=== PATIENT | male | born 1950 | race Caucasian/White ===

== ENCOUNTER 2016-10-19 17:21 | Inpatient (IN) | payer MEDICARE, OTHER ==
[~2016-10-19] VITALS: Ht 175.3 cm; Wt 96.2 kg
[~2016-10-19 17:21] MED LIST changes: -MAGN400T6 PO
--- OUTSIDE RECORDS SUMMARY | 2016-10-19 17:25 | XMS REPORT | Continuity of Care Document ---
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 Name Role Phone PINEDA WILLARD DO Primary Care Physician [phone] Insurance Providers Guarantor Pineda Huber Address [address] [place] [address] Email DENIED/NO TO PT RUST Payer Medicare Policy Number [id number] Subscriber's Name Pineda Huber Relationship 18 Self Effective Date 13 Payer [employer] Policy Number [id number] Subscriber's Name Pineda Huber Relationship 18 Self Group Number [id number] Chief Complaint and Reason for Visit Chief Complaint Cough,Fever,Flu,URI Reason for Visit Bronchitis Problems Active Problems Medical Problem Onset Date Status Abdominal pain Unknown Acute Back pain Unknown Acute Back pain Unknown Acute Bronchitis Unknown Acute Cholecystostomy tube dysfunction Unknown Acute Past Problems Medical Problem Onset Date Acute bronchitis Unknown Concussion Unknown Head injury Unknown Neck strain Unknown Medications Current Home Medications Medication Dose Units Route Directions Days Qty Instructions Start Date Asa/Acetaminophn/Mag/Alh/Caff (Vanquish Caplet) 1 Each Tablet 1 Tab Oral As Needed for Headache 01/18/16 Aspirin (Aspir 81) 81 Mg Tablet. 81 Mg Oral Daily 08/11/14 Azithromycin 250 Mg Tablet 1 Tab Oral Daily 6 Tablet TAKE TWO TABLETS ON DAY ONE, THEN ONE TABLET DAILY UNTIL ALL TAKEN. Supervising physician Dr. Neal Vences [facility] [address] [phone] 07/03/16 Benzonatate (Tessalon Perle) 100 Mg Capsule 100 Mg Oral Every 8 Hours for Cough 10 Days [address] Neal Vences [facility] [address] [place] [address] 07/03/16 Cyclobenzaprine Hcl 10 Mg Tablet 10 Mg Oral Three Times A Day as needed for Muscle Spasm 40 Tablet 01/18/16 Dextromethorphan Polistirex (Delsym) 30 Mg/5 Ml Carmen.er.12h 5 Ml Oral Every 12 Hrs Prn for Cough/Congestion 10 Days [address] Neal Vences [facility] [address] [place] [address] 08/24/16 Meloxicam 15 Mg Tablet 15 Mg Oral Daily 04/19/15 Metformin Hcl 500 Mg Tablet 500 Mg Oral Twice A Day 08/11/14 Minocycline Hcl 100 Mg Capsule 100 Mg Oral Twice A Day 10 Days [address] Neal Vences [facility] [address] [place] [address] 08/24/16 Multivits-Min/Fa/Lycopene/Lut (Centrum Silver Tablet) 1 Each Tablet 1 Tab Oral Daily 09/09/14 Oxymetazoline Hcl (Afrin) 30 Ml Eastover 2 Eastover Nasal As Needed as needed for Nasal Congestion 09/10/14 Promethazine Hcl/Codeine (Prometh-Codein 6.25-10 Mg/5 Ml) 5 Ml Syrup 5 Ml Oral Every Night Prn for Cough/Congestion 10 Days [address] Neal Vences [facility] [address] [place] [address] 07/03/16 Social History Social History Problem Response Recorded Date/Time Onset Date Status Hx Substance Use No 01/18/2016 3:31pm Not Applicable Not Applicable Hx Alcohol Use Y OCCASIONALLY 01/18/2016 3:31pm Not Applicable Not Applicable Has the pt used tobacco in the last 12 months No 07/06/2015 6:48am Not Applicable Not Applicable Tobacco Usage none 01/18/2016 3:08pm Not Applicable Not Applicable Hospital Discharge Instructions No hospital discharge instructions. Plan of Care Discharge Date 08/24/16 11:20am Disposition 01 DISCHARGED HOME, SELF-CARE Condition at Discharge Stable Instructions/Education Provided Upper Respiratory Infection (ED) Acute Cough (ED) Prescriptions See Medication Section Referrals PINEDA WILLARD DO Address: [address] [place] [phone] Additional Instructions/Education Take minocycline as directed. Use Delsym cough syrup as directed. Follow with primary care provider if symptoms are not improving. Functional Status No functional status results. Allergies, Adverse Reactions, Alerts Allergen Type Severity Reaction Status Last Updated Penicillin Allergy Unknown Active 08/24/16 Immunizations Query Response on File Recorded Date/Time Hx Influenza Vaccination No 07/06/15 6:48am Hx Pneumococcal Vaccination No 07/06/15 6:48am Hx Influenza Vaccination No 07/06/15 6:48am DTaP Vaccine History NO 08/24/16 10:36am Influenza Vaccine Hx NO 08/24/16 10:36am Tetanus Diptheria Vaccine History NO 08/24/16 10:36am Vital Signs Acute Vital Signs Vital Response Date/Time Temperature (Fahrenheit) 98.3 deg F (96.8 - 99.1) 08/24/2016 10:33am Temperature (Calculated Celsius) 36.18032 degrees C (36.0 - 37.3) 08/24/2016 10:33am Pulse Rate (adult) 74 bpm (60 - 100) 08/24/2016 10:33am Respiratory Rate 18 breaths/min (10 - 20) 08/24/2016 10:33am O2 Sat by Pulse Oximetry 97 % (90 - 100) 08/24/2016 10:33am Blood Pressure 114/76 mm Hg 08/24/2016 10:33am Height (Inches) 67.12 inches 08/24/2016 10:33am Weight (Kilograms) 91.400 kg 08/24/2016 10:33am Body Mass Index (BMI) 31.0 08/24/2016 10:33am Results No known relevant diagnostic tests, laboratory data and/or discharge summary. Procedures No known history of procedures. Encounters Encounter Location Arrival/Admit Date Discharge/Depart Date Attending Provider Departed Emergency Room [facility] 08/24/16 10:16am 08/24/16 11: 20am MARISEL GALVIN APRN Departed Emergency Room [facility] 07/03/16 11:21am 07/03/16 12: 12pm MARISEL GALVIN FLOOR INSTALLER Recent Diagnosis
--- OUTSIDE RECORDS SUMMARY | 2016-10-19 17:25 | XMS REPORT | Continuity of Care Document ---
Author Author [facility] Organization [facility] Address Unknown Phone Unavailable Support Name Relationship Address Phone NAPOLEON SHARMA MD Caregiver [facility] [address] [place] [address] Unavailable NAPOLEON WILLARD DO Caregiver [facility] [address] [place] [phone] RISHI HUBER Next Of Kin [address] [place] [address] Insurance Providers Payer Name Policy Number Subscriber Name Relationship Medicare [id number] Napoleon Huber 18 Self [employer] [id number] Napoleon Huber 18 Self Advance Directives Directive Response Recorded Date/Time Advanced Directives Type None 08/11/14 6:35pm Problems Medical Problems Problem Onset Date Status Abdominal pain Unknown Active Cholecystostomy tube dysfunction Unknown Active Back pain Unknown Active Medications Medication Dose Route Sig Days/Qty Instructions Order Date Discontinued Date Status Amlodipine Besylate/Benazepril 1 Cap PO DAILY 07/09/08 Active Ascorbic Acid 500 Mg PO DAILY 07/09/08 Active Aspirin 1 Tab PO DAILY 08/11/14 Active Meloxicam 15 Mg PO DAILY 08/11/14 Active Metformin HCl 500 Mg PO TWICE A DAY Take one tablet, by mouth, one time a day with breakfast. 08/11/14 Active Prochlorperazine Maleate 10 Mg PO FOUR TIMES DAILY 30 Qty 08/11/14 Active Social History Social History Problem Response Recorded Date/Time Chewing Tobacco Status N former 08/11/2014 6:59pm Hx Substance Use No 08/11/2014 6:59pm Hx Alcohol Use Y 1 beer a month 08/11/2014 6:59pm Query Response Start Date Stop Date Smoking Status Former smoker Hospital Discharge Instructions No hospital discharge instructions. Plan of Care No plan of care. Functional Status Query Response Date Recorded Physical Hygiene Self August 11, 2014 6:59pm Disabilities Visual August 11, 2014 6:59pm Devices Used Glasses August 11, 2014 6:59pm Dressing Self August 11, 2014 6:59pm Ambulation Self August 11, 2014 6:59pm Diet Self August 11, 2014 6:59pm Mental Status Alert Oriented August 11, 2014 6:59pm Disabilities Visual August 11, 2014 6:59pm Devices Used Glasses August 11, 2014 6:59pm Physical Hygiene Self August 11, 2014 6:59pm Dressing Self August 11, 2014 6:59pm Ambulation Self August 11, 2014 6:59pm Diet Self August 11, 2014 6:59pm Allergies, Adverse Reactions, Alerts Allergen Type Severity Reaction Status Last Updated Penicillin Allergy Unknown Active 08/11/14 Immunizations Name Given Type Hx Influenza Vaccination No Historical Hx Pneumococcal Vaccination No Historical Hx Influenza Vaccination No Historical Vital Signs Acute Vital Signs Vital Response Date/Time Temperature (Fahrenheit) 97.0 deg F (96.8 - 99.1) Temperature (Calculated Celsius) 36.71098 degrees C (36.0 - 37.3) Pulse Rate (adult) 66 bpm (60 - 100) Respiratory Rate 16 breaths/min (10 - 20) O2 Sat by Pulse Oximetry 96 % (90 - 100) Blood Pressure 110/70 mm Hg Height 5 ft 9 in Weight 203 lb Body Mass Index 29.0 kg/m^2 Results Test Source Date Result Interp. Ref. Range Comments Alanine Aminotransferase (ALT/SGPT) August 11, 2014 8:10pm 64 U/L N 21- 72 Albumin August 11, 2014 8:10pm 4.3 G/DL N 3.5-5.0 Albumin/Globulin Ratio August 11, 2014 8:10pm 1.4 RATIO N 1.1-2.2 Alkaline Phosphatase August 11, 2014 8:10pm 66 U/L N 38-126 Anion Gap August 11, 2014 8:10pm 8 MEQ/L N 5-15 Aspartate Amino Transf (AST/SGOT) August 11, 2014 8:10pm 113 U/L H 17- 59 BUN/Creatinine Ratio August 11, 2014 8:10pm 27 RATIO H 6-26 Basophils # (Auto) August 11, 2014 8:10pm 0.1 T/MM3 N 0-0.2 Basophils (%) (Auto) August 11, 2014 8:10pm 0.5 % N 0-2 Blood Urea Nitrogen August 11, 2014 8:10pm 19.0 MG/DL N 9-20 Calcium Level August 11, 2014 8:10pm 9.1 MG/DL N 8.4-10.2 Calculated Osmolality August 11, 2014 8:10pm 261 MOSM/KG N 261-280 Carbon Dioxide Level August 11, 2014 8:10pm 25 MEQ/L N 22-30 Chloride Level August 11, 2014 8:10pm 101 MEQ/L N 98-107 Creatinine August 11, 2014 8:10pm 0.7 MG/DL L 0.8-1.5 Eosinophils # (Auto) August 11, 2014 8:10pm 0.1 T/MM3 N 0-0.5 Eosinophils (%) (Auto) August 11, 2014 8:10pm 1.5 % N 0-4 Globulin August 11, 2014 8:10pm 3.1 G/DL N 2.4-3.6 Glucose Level August 11, 2014 8:10pm 110 MG/DL N 75-110 Hematocrit August 11, 2014 8:10pm 40.9 % L 41-53 Hemoglobin August 11, 2014 8:10pm 14.1 GM/DL N 13.5-17.5 Lipase August 11, 2014 8:10pm 196 U/L N 23-300 Lymphocytes # (Auto) August 11, 2014 8:10pm 3.3 T/MM3 N 1-4.8 Lymphocytes (%) (Auto) August 11, 2014 8:10pm 34.4 % N 23-45 Mean Corpuscular Hemoglobin August 11, 2014 8:10pm 31.9 UUG N 26-34 Mean Corpuscular Hemoglobin Concent August 11, 2014 8:10pm 34.5 GM/DL N 31-37 Mean Corpuscular Volume August 11, 2014 8:10pm 92.5 UM3 N 80-100 Mean Platelet Volume August 11, 2014 8:10pm 9.4 UM3 N 9.4-12.4 Monocytes # (Auto) August 11, 2014 8:10pm 0.9 T/MM3 H 0-0.8 Monocytes (%) (Auto) August 11, 2014 8:10pm 9.3 % H 0-9.0 Neutrophils # (Auto) August 11, 2014 8:10pm 5.2 T/MM3 N 1.8-7.7 Neutrophils (%) (Auto) August 11, 2014 8:10pm 54.2 % N 33-66 Platelet Count August 11, 2014 8:10pm 185 T/MM3 N 130-400 Potassium Level August 11, 2014 8:10pm 4.7 MEQ/L N 3.6-5 RDW Standard Deviation August 11, 2014 8:10pm 42.6 FL N 36.9-50.2 Red Blood Count August 11, 2014 8:10pm 4.42 M/MM3 L 4.50-5.90 Sodium Level August 11, 2014 8:10pm 134 MEQ/L N 134-144 Total Bilirubin August 11, 2014 8:10pm 1.40 MG/DL H 0.20-1.30 Total Protein August 11, 2014 8:10pm 7.4 G/DL N 6.3-8.2 Troponin I August 11, 2014 8:10pm 0.013 ng/ml N 0-0.12 White Blood Count August 11, 2014 8:10pm 9.5 T/MM3 N 4.5-11.0 Chemistry Specimen Hemolysis August 11, 2014 8:10pm 116 H 0-25 0-25: No Hemolysis.26-70: Slight Hemolysis - can falsely elevate K and Urine Protein. 71-285: Moderate Hemolysis - can falsely elevate K, Troponin I, CA 19-9, PTH, CSF GLucose, and Urine Protein, and can falsely decrease Phenytoin. 286-999: Gross Hemolysis - can falsely elevate K, Troponin I, CA 19-9, PTH, CSF Glucose, and Urine Protine, and can falsely decrease Phenytoin. Recommend specimen recollection. EKG July 08, 2008 1:33pm Complete - Turbidity August 11, 2014 8:10pm < 20 0-20 Glomerular Filtration Rate Calc August 11, 2014 8:10pm 113 - Immature Granulocyte # (Auto) August 11, 2014 8:10pm 0.01 T/MM3 N 0.00- 0.03 Immature Granulocyte % (Auto) August 11, 2014 8:10pm 0.1 % N 0.0-0.5 Icterus Index August 11, 2014 8:10pm < 2 0-7 Procedures No known history of procedures. Encounters Encounter Location Date/Time Departed Emergency Room [facility] 08/11/14 6:17pm Recent Diagnosis
--- OUTSIDE RECORDS SUMMARY | 2016-10-19 17:25 | XMS REPORT | Continuity of Care Document ---
Author Author [facility] Organization [facility] Address Unknown Phone Unavailable Support Name Relationship Address Phone MILO BINGHAM MD Caregiver [facility] [address] [place] [address] [address] [place] [phone] PINEDA WILLARD DO Caregiver [facility] [address] [place] [phone] RISHI HUBER Next Of Kin [address] [place] [address] Insurance Providers Payer Name Policy Number Subscriber Name Relationship Medicare [id number] Pineda Huber 18 Self [employer] [id number] Pineda Huber 18 Self Advance Directives Directive Response Recorded Date/Time Ordered Resuscitation Status Full Code 09/09/14 5:23pm Resuscitation Documents on File No 09/09/14 2:13pm Problems Medical Problems Problem Onset Date Status Abdominal pain Unknown Active Cholecystostomy tube dysfunction Unknown Active Back pain Unknown Active Back pain Unknown Active Medications Medication Dose Route Sig Days/Qty Instructions Order Date Discontinued Date Status Amlodipine Besylate/Benazepril 1 Cap PO DAILY 07/09/08 Active Aspirin 1 Tab PO DAILY 08/11/14 Active Meloxicam 15 Mg PO DAILY 08/11/14 Active Metformin HCl 500 Mg PO TWICE A DAY Take one tablet, by mouth, one time a day with breakfast. 08/11/14 Active Multivits-Min/FA/Lycopene/Lut 1 Tab PO DAILY 09/09/14 Active Oxymetazoline HCl 2 Hardesty NS DAILY 09/10/14 Active Social History Social History Problem Response Recorded Date/Time Chewing Tobacco Status No 09/09/2014 2:08pm Hx Substance Use No 09/09/2014 2:08pm Hx Alcohol Use Y OCCASIONALLY 09/09/2014 2:08pm Has the pt used tobacco in the last 12 months No 09/09/2014 2:08pm Query Response Start Date Stop Date Smoking Status Former smoker Hospital Discharge Instructions No hospital discharge instructions. Plan of Care No plan of care. Functional Status Query Response Date Recorded Physical Hygiene Self August 11, 2014 6:59pm Physical Hygiene Self August 11, 2014 6:59pm Allergies, Adverse Reactions, Alerts Allergen Type Severity Reaction Status Last Updated Penicillin Allergy Unknown Active 09/09/14 Immunizations Name Given Type Hx Influenza Vaccination No Historical Hx Pneumococcal Vaccination No Historical Hx Influenza Vaccination No Historical Vital Signs Acute Vital Signs Vital Response Date/Time Temperature (Fahrenheit) 98.8 deg F (96.8 - 99.1) Temperature (Calculated Celsius) 37.22808 degrees C (36.0 - 37.3) Pulse Rate (adult) 74 bpm (60 - 100) Respiratory Rate 18 breaths/min (10 - 20) O2 Sat by Pulse Oximetry 94 % (90 - 100) Oxygen Delivery Method Room Air Blood Pressure 95/64 mm Hg Blood Pressure Source Automatic Cuff Height 5 ft 9 in Weight 202 lb Body Mass Index 29.0 kg/m^2 Results Test Source Date Result Interp. Ref. Range Comments Alanine Aminotransferase (ALT/SGPT) August 11, 2014 8:10pm 64 U/L N 21- 72 Albumin August 11, 2014 8:10pm 4.3 G/DL N 3.5-5.0 Albumin/Globulin Ratio August 11, 2014 8:10pm 1.4 RATIO N 1.1-2.2 Alkaline Phosphatase August 11, 2014 8:10pm 66 U/L N 38-126 Anion Gap September 10, 2014 11:00am 11 MEQ/L N 5-15 COMMENT SCU WILL CALL Aspartate Amino Transf (AST/SGOT) August 11, 2014 8:10pm 113 U/L H 17- 59 BUN/Creatinine Ratio September 10, 2014 11:00am 20 RATIO N 6-26 COMMENT SCU WILL CALL Basophils # (Auto) August 11, 2014 8:10pm 0.1 T/MM3 N 0-0.2 Basophils (%) (Auto) August 11, 2014 8:10pm 0.5 % N 0-2 Blood Urea Nitrogen September 10, 2014 11:00am 18.0 MG/DL N 9-20 COMMENT SCU WILL CALL Calcium Level September 10, 2014 11:00am 9.4 MG/DL N 8.4-10.2 COMMENT SCU WILL CALL Calculated Osmolality September 10, 2014 11:00am 275 MOSM/KG N 261-280 COMMENT SCU WILL CALL Carbon Dioxide Level September 10, 2014 11:00am 26 MEQ/L N 22-30 COMMENT SCU WILL CALL Chemistry Specimen Hemolysis September 10, 2014 11:00am < 15 0-25 0-25 : No Hemolysis.26-70: Slight Hemolysis - can falsely elevate K and Urine Protein. 71-285: Moderate Hemolysis - can falsely elevate K, Troponin I, CA 19-9, PTH, CSF GLucose, and Urine Protein, and can falsely decrease Phenytoin. 286-999: Gross Hemolysis - can falsely elevate K, Troponin I, CA 19-9, PTH, CSF Glucose, and Urine Protine, and can falsely decrease Phenytoin. Recommend specimen recollection. Chloride Level September 10, 2014 11:00am 105 MEQ/L N 98-107 COMMENT SCU WILL CALL Creatinine September 10, 2014 11:00am 0.9 MG/DL N 0.8-1.5 COMMENT SCU WILL CALL EKG July 08, 2008 1:33pm Complete - Eosinophils # (Auto) August 11, 2014 8:10pm 0.1 T/MM3 N 0-0.5 Eosinophils (%) (Auto) August 11, 2014 8:10pm 1.5 % N 0-4 Globulin August 11, 2014 8:10pm 3.1 G/DL N 2.4-3.6 Glomerular Filtration Rate Calc September 10, 2014 11:00am 84 - COMMENT SCU WILL CALL Glucometer September 11, 2014 11:32am 122 mg/dL H 75-110 Glucose Level September 10, 2014 11:00am 90 MG/DL N 75-110 COMMENT SCU WILL CALL Hematocrit August 11, 2014 8:10pm 40.9 % L 41-53 Hemoglobin August 11, 2014 8:10pm 14.1 GM/DL N 13.5-17.5 Icterus Index September 10, 2014 11:00am < 2 0-7 COMMENT SCU WILL CALL Immature Granulocyte # (Auto) August 11, 2014 8:10pm 0.01 T/MM3 N 0.00- 0.03 Immature Granulocyte % (Auto) August 11, 2014 8:10pm 0.1 % N 0.0-0.5 Lipase August 11, 2014 8:10pm 196 U/L [...] 8:10pm 185 T/MM3 N 130-400 Potassium Level September 10, 2014 11:00am 4.4 MEQ/L N 3.6-5 COMMENT SCU WILL CALL RDW Standard Deviation August 11, 2014 8:10pm 42.6 FL N 36.9-50.2 Red Blood Count August 11, 2014 8:10pm 4.42 M/MM3 L 4.50-5.90 Sodium Level September 10, 2014 11:00am 142 MEQ/L N 134-144 COMMENT SCU WILL CALL Total Bilirubin August 11, 2014 8:10pm 1.40 MG/DL H 0.20-1.30 Total Protein August 11, 2014 8:10pm 7.4 G/DL N 6.3-8.2 Troponin I August 11, 2014 8:10pm 0.013 ng/ml N 0-0.12 Turbidity September 10, 2014 11:00am < 20 0-20 COMMENT SCU WILL CALL White Blood Count August 11, 2014 8:10pm 9.5 T/MM3 N 4.5-11.0 Name: PINEDA HUBER Unit #: [id number] : [id number] Sex: M Loc / Svc: [facility] DOS: 08/17/14 Signed Report #: [id number] DIAGNOSTIC IMAGING REPORT TYPE OF EXAM: US ABDOMEN COMPLETE Dictated By: MABLE RODGERS MD INDICATION: ITS.REASON: 789.01, V12.72, 401.9 RUQ ABD. PAIN US ABDOMEN COMPLETE: Comparison: None Findings: Hepatic parenchyma is homogeneous without evidence for focal mass. The gallbladder is abnormal with multiple gallstones, wall thickening and numerous areas of comet tail artifact within the gallbladder wall consistent with adenomyomatosis. There is no pericholecystic fluid or sonographic Ugarte's sign. Both the intra and extrahepatic biliary system are of normal caliber with the common duct measuring 4 mm in dimension. Visualized portions of the head and body of the pancreas are unremarkable. Both kidneys are present without collecting system dilatation. The right measures 12.3 cm in length and left measures 12.7 cm. The spleen is unremarkable. The visualized portions of the aorta and IVC are unremarkable. No free fluid. Impression: Cholelithiasis and evidence of adenomyomatosis of the gallbladder. . Procedures Procedure Status Date Provider(s) ROUTINE VENIPUNCTURE completed 08/11/14 COMPREHEN METABOLIC PANEL completed 08/11/14 ASSAY OF LIPASE completed 08/11/14 ASSAY OF TROPONIN QUANT completed 08/11/14 COMPLETE CBC W/AUTO DIFF WBC completed 08/11/14 ELECTROCARDIOGRAM TRACING completed 08/11/14 EMERGENCY DEPT VISIT completed 08/11/14 US EXAM ABDOM COMPLETE completed 08/17/14 Robot-assisted cholecystectomy completed 09/10/14 MILO BINGHAM MD Encounters Encounter Location Date/Time Registered Clinic [facility] 08/17/14 6:54am Departed Emergency Room [facility] 08/11/14 6:17pm
[2016-10-19 17:38] VITALS: Ht 175.3 cm; Wt 96.2 kg
[2016-10-19] MEDS ORDERED: NORMAL SALINE 500 ML IV SCH (17:41)
[2016-10-19 17:46] VITALS: BP 130/65; PULSE 82; RESP 16; TEMP 98.6; O2SAT 97
--- NOTE | 2016-10-19 18:26 | HPPDOC ---
HPI - Adult Date DATE: 10/19/16 TIME: 18:05 General Chief Complaint: hematochezia with blood loss anemia History of Present Illness Raul Huber is a very pleasant 66-year-old white male. He call my office this morning indicating that he had passed bright red blood per rectum and was feeling quite weak. He was then directed to come to [facility] for urgent lab. Results of this lab indicated a hemoglobin of 6.1. His last CBC from 06/04/2016 showed a hemoglobin of 13.9. He indicates that he had 2 episodes in August of bright red blood per rectum on separate days that was as he put it, enough to fill the toilet with blood. Saturday of this week he had another episode of hematochezia and became quite diaphoretic and nauseated. Saturday, he had another episode of bright red rectal bleeding that he describes as a lot. This morning he was still weak and that's what prompted his phone call. He is not taking any supplements [id number] and only takes aspirin 81 mg daily for cardiovascular protection. He has been taking Lopid 15 mg but denies any epigastric pain or melena. He does feel lightheaded with standing. Upon receiving his lab this afternoon, we called him at home and had his bring him to the hospital to be a direct admit and receive transfusion and further testing. Past Medical History Past Medical History Patient's Medical History: (1) Diabetes mellitus type 2 in obese (2) Aortic stenosis, mild (3) Abdominal pain (4) Cholecystostomy tube dysfunction (5) Back pain (6) Joint pain Surgical History Patient's Surgical History: 09/10/2014--cholecystectomy Dr. Reynoso 1984 vasectomy 04/19/2015-heart catheterization Dr. Snider [address] Reynoso 2009 colonoscopy with polypectomy, diverticulosis-- Dr. Willard 07/06/2015 colonoscopy [address] Willard Current Medications Home Meds Active Scripts Dextromethorphan Polistirex (Delsym) 30 Mg/5 Ml Carmen.er.12h, 5 ML PO [id number] for COUGH/CONGESTION for 10 Days, #100 ML [address] Neal Vences [facility] [address] [facility] [phone] Prov:MARISEL GALVIN APRN 08/24/16 Minocycline HCl (Minocycline HCl) 100 Mg Capsule, 100 MG PO BID for 10 Days, # 20 CAP [address] Neal Vences [employer] [address] [phone] Prov:MARISEL GALVIN INVOICE CLASSIFICATION CLERK 08/24/16 Benzonatate (Tessalon Perle) 100 Mg Capsule, 100 MG PO Q8H for COUGH for 10 Days , #30 CAP [address] Neal Vences [employer] [address] [phone] Prov:MARISEL GALVIN INVOICE CLASSIFICATION CLERK 07/03/16 Promethazine HCl/Codeine (Prometh-Codein 6.25-10 mg/5 ml) 5 Ml Syrup, 5 ML PO QHSPRN for COUGH/CONGESTION for 10 Days, #60 ML [address] Neal Vences [employer] [employer] [address] [phone] Prov:MARISEL GALVIN INVOICE CLASSIFICATION CLERK 07/03/16 Azithromycin (Azithromycin) 250 Mg Tablet, 1 TAB PO DAILY, #6 TAB 0 Refills TAKE TWO TABLETS ON DAY ONE, THEN ONE TABLET DAILY UNTIL ALL TAKEN. Supervising physician Dr. Neal Vences [employer] [address] [phone] Prov:MARISEL GALVIN INVOICE CLASSIFICATION CLERK 07/03/16 Cyclobenzaprine HCl (Cyclobenzaprine HCl) 10 Mg Tablet, 10 MG PO TID Y for MUSCLE SPASM, #40 TAB 0 Refills Prov:EMMA PEREZ MD 01/18/16 Reported Medications ASA/Acetaminophn/Mag/Alh/Caff (Vanquish Caplet) 1 Each Tablet, 1 TAB PO PRN for HEADACHE 01/18/16 Meloxicam (Meloxicam) 15 Mg Tablet, 15 MG PO DAILY 04/19/15 Oxymetazoline HCl (Afrin) 30 Ml [place], 2 SPRAY NS PRN Y for NASAL CONGESTION 09/10/14 Multivits-Min/FA/Lycopene/Lut (Centrum Silver Tablet) 1 Each Tablet, 1 TAB PO DAILY 09/09/14 Metformin HCl (Metformin HCl) 500 Mg Tablet, 500 MG PO BID 08/11/14 Aspirin (Aspir 81) 81 Mg Tablet.dr, 81 MG PO DAILY 08/11/14 Allergies: Coded Allergies: Penicillins (Verified Allergy, Unknown, 08/24/16) POSSIBLE ALLERGY FAMILY HISTORY OF ALLERGY TO PCN BUT PT HAS NEVER HAD Family History Family History: Father--hypertension coronary artery disease diabetes mellitus Sister--coronary artery disease Social History Smoking Status: Former smoker Does patient use chewing tobac: No # of Packs/Tins per Day: 1 # of Years: 20 Second Hand Exposure: No Substance Use Type: does not use Alcohol Intake: occasionally Last Drink: days (ago) Marital Status: Sexuality: female partner Housing: house Household Members: spouse Current Occupational Status: employed Advance Directives: No DPOA for Healthcare Only Review of Systems Constitutional: REPORTS: dizziness, fatigue, weakness, DENIES: chills, fever, weight gain, weight loss Cardiovascular chest pain (central chest pressure radiating to his back), dyspnea on exertion, DENIES: orthopnea, paroxysmal nocturnal dysp Rhythm/Rate: DENIES: bradycardia, irregular beat, palpitations, tachycardia Vascular: DENIES: pedal edema Pulmonary Respiratory: DENIES: cough, dyspnea, hyperventilation, pleuritic chest pain, sputum, tachypnea GI Upper Abdomen: DENIES: abdominal swelling, dysphagia, food intolerances, heartburn/indigestion, hematemesis, nausea, pain, vomiting Lower Abdomen: blood in stool (large amount of bright rectal blood), DENIES: diarrhea, melena, pain General: DENIES: discharge, dysuria, frequency, hematuria, polyuria, urgency Male: DENIES: frequency, hesitancy, retention Integumentary Skin: color change (pale), DENIES: itching, lesion, rash, tumor Neurological General: other (presyncope), weakness, DENIES: headache, numbness Psychiatric Psychiatric: DENIES: anxiety, depression, emotional instability, irritability, nervousness Endocrine DENIES: heat/cold intolerance, polydipsia, polyphagia Hematologic/Lymphatic DENIES: anemia, bleeding gums, easy bruising, frequent nosebleeds Allergic/Immunological DENIES: frequent infections, hives, sneezing All Other Systems All Other Systems: Reviewed (remainder of 10-point ROS Neg.) Physical Exam General General Nourishment: well nourished, well developed, obese, adult General Body Habitus: well groomed Vital Signs Vital Signs Date Time Temp Pulse Resp B/P Pulse Ox O2 Delivery O2 Flow Rate FiO2 10/19/16 17:46 82 16 130/65 97 Room Air Height (Feet): 5 Height (Inches): 9.00 Telemetry Rhythm: Sinus Rhythm Eyes Brief: FOUND: EOMI, PERRL, NOT FOUND: scleral icterus Neck Brief: NOT FOUND: JVD, adenopathy, carotid bruits, thyromegaly Respiratory Brief: FOUND: clear all lewis, equal bilaterally, NOT FOUND: rales , wheezes Cardiovascular (brief) Cardiac Brief: FOUND: murmur (3/6 systolic murmur), regular rate, regular rhythm, NOT FOUND: gallop, pedal edema Abdomen (brief) Abdominal Brief: FOUND: BS normo active x4, soft, NOT FOUND: distended, hepatosplenomegaly, tender Lymphatic (brief) Lymphatic Brief: NOT FOUND: adenopathy, lymphedema Musculoskeletal (brief) Musculoskeletal Brief: NOT FOUND: deformity, loss of motion, spasm, tenderness Integumentary (brief) Integumentary Brief: FOUND: dry, warm, NOT FOUND: pink, rash Neurologic (brief) Neurological Brief: FOUND: cranial 2-12 intact, motor, sensory, NOT FOUND: facial droop, ptosis Neurologic RN Documented GCS Eye Opening: Verbal: Motor: Total: Psychiatric (brief) FOUND: alert, attentive, normal affect, oriented Laboratory Hemoglobin 6.1 Assessment & Plan Problems: (1) Hematochezia Status: Acute (2) Acute blood loss anemia Status: Acute (3) Aortic stenosis, mild Status: Chronic (4) Diabetes mellitus type 2 in obese Status: Chronic (5) Joint pain Status: Chronic Code Status Hospital Course Summary Disclaimer The hospital course summary below is not to be considered part of the above Progress Note. Hospital Course Summary Patient admitted for acute blood loss anemia with hematochezia. We will type and cross 2 units packed red blood cells and give each. I will try to keep 2 units of packed red blood cells ahead and all times. We will recheck his lab in the morning including CBC chemistry panel and iron studies. He will need another colonoscopy. If this is negative consider Meckel's scan. As of now, I suspect diverticular bleeding PINEDA WILLARD DO Oct 19, 2016 18:09
--- NOTE | 2016-10-19 18:39 | NUR ---
admit Pt to room at 1730 via WC. Pt A/O x3, V/S taken and stable on RA. HX taken and IV started in Lt hand with blood draw taken. Blood transf consent signed. Pt denies pain at this time and made comfortable.
[2016-10-19] MEDS ORDERED: ONDANSETRON 4mg/2ml INJECTION IV PRN (18:45)
[2016-10-19 21:17] VITALS: PULSE 76
--- NOTE | 2016-10-19 21:30 | NUR ---
Blood First unit of PRBC's started. 15 minutes elapsed with no complaints of pain, chills, or fever. Rate increased. VSS. Will continue to monitor.
[2016-10-19 23:27] VITALS: BP 113/64; PULSE 75; RESP 14; TEMP 98.9; O2SAT 97
--- NOTE | 2016-10-20 00:42 | NUR ---
Blood Unit 1 transfused with no S/S of transfusion reaction. VSS throughout.
--- NOTE | 2016-10-20 01:15 | NUR ---
Blood Unit 2 started with stable VS's and no S/S of transfusion reaction. Will continue to monitor.
--- NOTE | 2016-10-20 04:05 | NUR ---
Blood Unit 2 is completed with stable VS's. Pt able to sleep during transfusion. States that he "feels fine." No S/S's of transfusion reaction noted. Will continue to monitor.
[2016-10-20 05:09] LABS: BASOPHILS % (AUTO) 0.4 % (0-2); EOSINOPHILS # (AUTO) 0.2 T/MM3 (0-0.5); EOSINOPHILS % (AUTO) 2.2 % (0-4); HCT - HEMATOCRIT 22.6 % (41-53); HGB - HEMOGLOBIN 6.9 GM/DL (13.5-17.5); LYMPHOCYTES # (AUTO) 4.3 T/MM3 (1-4.8); LYMPHOCYTES % (AUTO) 64.5 % (23-45); MEAN CORPUSCULAR HGB 24.4 UUG (26-34); MEAN CORPUSCULAR HGB CONC(MCHC 30.5 GM/DL (31-37); MEAN CORPUSCULAR VOLUME 79.9 UM3 (80-100); MEAN PLATELET VOLUME 9.5 UM3 (9.4-12.4); MONOCYTES # (AUTO) 0.7 T/MM3 (0-0.8); MONOCYTES % (AUTO) 9.7 % (0-9.0); NEUTROPHILS #(AUTO)-ABSOLUTE 1.5 T/MM3 (1.8-7.7); NEUTROPHILS % (AUTO) 23.2 % (33-66); RED BLOOD COUNT 2.83 M/MM3 (4.50-5.90); WBC - WHITE BLOOD COUNT 6.7 T/MM3 (4.5-11.0)
[2016-10-20] MEDS ORDERED: NORMAL SALINE 500 ML IV SCH ×3 (05:22→22:54)
[2016-10-20 05:23] LABS: ALBUMIN 2.9 G/DL (3.5-5.0); ALBUMIN/GLOBULIN RATIO 1.3 RATIO (1.1-2.2); ALKALINE PHOSPHATASE 35 U/L (38-126); ALT (SGPT) 25 U/L (21-72); ANION GAP 2 MEQ/L (5-15); AST (SGOT) 26 U/L (17-59); BUN/CREATININE RATIO 21 RATIO (6-26); CALCIUM 8.1 MG/DL (8.4-10.2); CHLORIDE 109 MEQ/L (98-107); CO2 - CARBON DIOXIDE 27 MEQ/L (22-30); CREATININE 0.8 MG/DL (0.8-1.5); GLOMERULAR FILTRATION RATE 96; GLUCOSE 98 MG/DL (75-110); POTASSIUM 4.3 MEQ/L (3.6-5); SODIUM 138 MEQ/L (134-144); TOTAL PROTEIN 5.2 G/DL (6.3-8.2)
[2016-10-20 08:00] VITALS: BP 119/67; PULSE 71; RESP 16; TEMP 98.7; O2SAT 97
[2016-10-20] MEDS: METFORMIN 500 MG TABLET PO SCH ×2 (09:06→17:38)
[2016-10-20 09:11] LABS: HGB - HEMOGLOBIN 7.8 GM/DL (13.5-17.5)
[2016-10-20] MEDS ORDERED: BISACODYL 10 MG SUPPOSITORY RECTALLY PRN (11:15)
[2016-10-20] MEDS ORDERED: ACETAMINOPHEN 325 MG TABLET PO PRN (11:15)
[2016-10-20] MEDS ORDERED: PRN ORDERS MC (11:15)
[2016-10-20] MEDS ORDERED: NITROGLYCERIN 0.4 MG SUBLINGUAL TABLET SL PRN (11:15)
[2016-10-20] MEDS ORDERED: MAG-AL + SIM LIQUID 30 ML UDC PO PRN (11:15)
[2016-10-20] MEDS ORDERED: MILK OF MAGNESIA 30 ML SUSP PO PRN (11:15)
--- NOTE | 2016-10-20 11:34 | PNPDOC ---
Subjective Date DATE: 10/20/16 TIME: 11:23 Subjective F/U: Hematochezia, acute blood loss anemia Covering for Dr Edmondson Feeling much better since transfusions. Breathing much easier - not SOA with activities as prior to admission. Heart not pounding as it was before. Feels less weak and unsteady when up. Not feeling dizzy with positional changes. No ab pain or nausea. Not passing blood in stool. No f/c. Objective Vital Signs Vital signs Vital Signs Date Time Temp Pulse Resp B/P Pulse Ox O2 Delivery O2 Flow Rate FiO2 10/20/16 08:00 98.7 71 16 119/67 97 Room Air Telemetry Rhythm: Sinus Rhythm Height (Feet): 5 Height (Inches): 9.00 Weight (Kilograms): 91.300 General General Appearance: Alert, Orientated x 3, Overweight, Well Nourished, Well Developed, Cooperative, Looks Stated Age Eyes (Brief) Eyes: FOUND: EOMI, PERRL, NOT FOUND: scleral icterus ENMT (Brief) ENMT: FOUND: hearing intact, mucosa moist Neck (Brief) Neck: FOUND: midline, NOT FOUND: nuchal rigidity, spasm Respiratory (Brief) Respiratory: FOUND: clear all lewis, equal bilaterally, NOT FOUND: rales, wheezes Cardiovascular (Brief) Cardiac: FOUND: murmur, regular rate, regular rhythm, NOT FOUND: pedal edema Abdomen (Brief) Abdominal: FOUND: BS normo active x4, soft, NOT FOUND: distended, tender Extremities (Brief) Extremity : Side: Bilateral Extremity: leg Extremity Finding: FOUND: other (SCD ), NOT FOUND: edema Musculoskeletal (Brief) Musculoskeletal: FOUND: extremities move equally, NOT FOUND: deformity, spasm Integumentary (Brief) Integumentary: FOUND: dry, warm Neurologic (Brief) Neurological: FOUND: cranial 2-12 intact, motor (Intact ) Psychiatric (Brief) Psychiatric: FOUND: alert, attentive, normal affect, oriented Laboratory Laboratory Laboratory Tests 10/20/16 04:43 Laboratory Tests 10/20/16 04:43 10/20/16 09:04 Assessment & Plan Problems: (1) Hematochezia Status: Acute (2) Acute blood loss anemia Status: Acute Assessment & Plan: 10/19 Transfused 2 units pRBC - HGB increased to 6.9 10/20 Transfused 1 unit pRBC - HGB increased to 7.8 (3) Aortic stenosis, mild Status: Chronic (4) Diabetes mellitus type 2 in obese Status: Chronic (5) Joint pain Status: Chronic Plan/Intensity of Service Continue clear liquids for bowel rest. Recheck H/H this afternoon. Encourage ambulation. SCD and ambulation for DVT prevention. Blood sugars stable. Blood pressure stable. Recheck CBC and BMP in am. Time spent with patient care 35 minutes. DVT Prophylaxis: SCD'S Code Status Full Code Hospital Course Summary Disclaimer The hospital course summary below is not to be considered part of the above Progress Note. Hospital Course Summary 10/19 Patient admitted for acute blood loss anemia with hematochezia. We will type and cross 2 units packed red blood cells and give each. I will try to keep 2 units of packed red blood cells ahead and all times. We will recheck his lab in the morning including CBC chemistry panel and iron studies. He will need another colonoscopy. If this is negative consider Meckel's scan. As of now, I suspect diverticular bleeding. 10/20 Dr Amaral covering for Dr Edmondson Feeling much better since transfusions. Breathing much easier - not SOA with activities as prior to admission. Heart not pounding as it was before. Feels less weak and unsteady when up. Not feeling dizzy with positional changes. No ab pain or nausea. Not passing blood in stool. No f/c. Transfused 2 units pRBC - HGB increased to 6.9. Transfused 1 unit pRBC - HGB increased to 7.8 Continue clear liquids for bowel rest. Recheck H/H this afternoon. Encourage ambulation. SCD and ambulation for DVT prevention. Blood sugars stable. Blood pressure stable. Recheck CBC and BMP in am. PILI AMARAL MD Oct 20, 2016 11:26
--- NOTE | 2016-10-20 12:32 | NUR ---
CM CM IN TO VISIT WITH PT. HE IS ALERT AND ORIENTED. HIS IS PRESENT. PT PLANS TO RETURN HOME. HE DENIES DC NEEDS. HIS LACE SCORE IS 10. NO FURTHER INTERVENTION NEEDED. HE IS GIVEN CM CONTACT INFORMATION. Addendum: 10/20/16 at 1233 by JOSEY HARRISON RN Amended: Links added.
[2016-10-20 13:52] LABS: HCT - HEMATOCRIT 25.3 % (41-53); HGB - HEMOGLOBIN 7.8 GM/DL (13.5-17.5)
[2016-10-20 16:00] VITALS: BP 107/62; PULSE 75; RESP 16; TEMP 97.9; O2SAT 98
--- NOTE | 2016-10-20 17:35 | NUR ---
BGM Elevated BGM at 1730, taken late and pt had eaten dinner.
[2016-10-20 18:32] LABS: HCT - HEMATOCRIT 22.4 % (41-53); HGB - HEMOGLOBIN 6.7 GM/DL (13.5-17.5)
--- NOTE | 2016-10-20 20:04 | NUR ---
status Pt A/O x3, V/S stable on RA. Pt eating well, for he can on cl. liq. diet. Still having large bloody liquid stool, pt now feeling more tired and weak when up. Latest H/H has decrease, N.O. to give 1 unit now.
[2016-10-20] MEDS ORDERED: NORMAL SALINE 1,000 ML IV ONE (23:15)
[2016-10-20 23:26] LABS: BASOPHILS % (AUTO) 0.2 % (0-2); EOSINOPHILS # (AUTO) 0.1 T/MM3 (0-0.5); EOSINOPHILS % (AUTO) 0.9 % (0-4); HCT - HEMATOCRIT 22.4 % (41-53); HGB - HEMOGLOBIN 6.9 GM/DL (13.5-17.5); IMMATURE GRANULOCYTE # (AUTO) 0.01 T/MM3 (0.00-0.03); IMMATURE GRANULOCYTE % (AUTO) 0.2 % (0.0-0.5); LYMPHOCYTES % (AUTO) 46.8 % (23-45); MEAN CORPUSCULAR HGB 24.8 UUG (26-34); MEAN CORPUSCULAR HGB CONC(MCHC 30.8 GM/DL (31-37); MEAN CORPUSCULAR VOLUME 80.6 UM3 (80-100); MEAN PLATELET VOLUME 9.3 UM3 (9.4-12.4); MONOCYTES # (AUTO) 0.6 T/MM3 (0-0.8); MONOCYTES % (AUTO) 9.9 % (0-9.0); NEUTROPHILS #(AUTO)-ABSOLUTE 2.7 T/MM3 (1.8-7.7); RED BLOOD COUNT 2.78 M/MM3 (4.50-5.90); WBC - WHITE BLOOD COUNT 6.4 T/MM3 (4.5-11.0)
[2016-10-20 23:36] VITALS: BP 109/62; PULSE 85; RESP 16; TEMP 98.7; O2SAT 98
[2016-10-21 05:10] LABS: BASOPHILS % (AUTO) 0.1 % (0-2); EOSINOPHILS # (AUTO) 0.1 T/MM3 (0-0.5); HCT - HEMATOCRIT 23.5 % (41-53); HGB - HEMOGLOBIN 7.4 GM/DL (13.5-17.5); IMMATURE GRANULOCYTE # (AUTO) 0.01 T/MM3 (0.00-0.03); IMMATURE GRANULOCYTE % (AUTO) 0.1 % (0.0-0.5); LYMPHOCYTES # (AUTO) 4.1 T/MM3 (1-4.8); LYMPHOCYTES % (AUTO) 56.9 % (23-45); MEAN CORPUSCULAR HGB 25.7 UUG (26-34); MEAN CORPUSCULAR HGB CONC(MCHC 31.5 GM/DL (31-37); MEAN CORPUSCULAR VOLUME 81.6 UM3 (80-100); MEAN PLATELET VOLUME 9.6 UM3 (9.4-12.4); MONOCYTES # (AUTO) 0.6 T/MM3 (0-0.8); MONOCYTES % (AUTO) 8.5 % (0-9.0); NEUTROPHILS #(AUTO)-ABSOLUTE 2.4 T/MM3 (1.8-7.7); NEUTROPHILS % (AUTO) 33.4 % (33-66); RED BLOOD COUNT 2.88 M/MM3 (4.50-5.90); WBC - WHITE BLOOD COUNT 7.3 T/MM3 (4.5-11.0)
[2016-10-21 05:25] LABS: ANION GAP 4 MEQ/L (5-15); BUN/CREATININE RATIO 16 RATIO (6-26); CALCIUM 7.8 MG/DL (8.4-10.2); CHLORIDE 109 MEQ/L (98-107); CO2 - CARBON DIOXIDE 25 MEQ/L (22-30); CREATININE 0.8 MG/DL (0.8-1.5); GLOMERULAR FILTRATION RATE 96; GLUCOSE 97 MG/DL (75-110); SODIUM 138 MEQ/L (134-144)
[2016-10-21 06:04] VITALS: BP 107/57; PULSE 72; RESP 17; TEMP 98.2; O2SAT 97
--- NOTE | 2016-10-21 07:49 | NUR ---
shift summary pt is a/o x3 and up with standby. pt was initially scheduled to receive 1 unit PRBC's of blood. About 1.5 hours after 1st unit was finished pt BP dropped to high 70's over 40's. Dr. Antoine was notified and ordered NS 1L bolus and an additional unit of PRBC's (blood). hbg to be checked again now (hgb 6.9) and again with AM labs. BP to be called to Dr. Antoine with 1st hgb check within the hour. Dr. Antoine was notified that after NS bolus BP had stabilized to 109's/50's. VS rechecked at 0630 and stable. pt tolerated transfusion well and denied any soa or pain. pt reported adequate output. no bloody stools noted since early in the shift. pt on ra.
[2016-10-21 08:03] VITALS: BP 109/60; PULSE 68; RESP 16; TEMP 98.2; O2SAT 99
[2016-10-21] MEDS: METFORMIN 500 MG TABLET PO SCH ×2 (09:19→16:53)
[2016-10-21 12:06] LABS: HGB - HEMOGLOBIN 7.6 GM/DL (13.5-17.5)
[2016-10-21 12:16] VITALS: BP 107/63; PULSE 70; RESP 16; TEMP 97; O2SAT 97
--- NOTE | 2016-10-21 12:17 | PNPDOC ---
Subjective Date DATE: 10/21/16 TIME: 12:08 Subjective F/U: Hematochezia, acute blood loss anemia Covering for Dr Edmondson Passed bloody stools yesterday. HGB decreased. Transfused yesterday evening and again this morning shortly after midnight. Did need IVF bolus overnight as BP decreased. Denies ab pain or discomfort. Notes bloating and rumbling in abdomen. No nausea. Breathing well without SOA or congestion. No chest pressure or pain. Not dizzy when up-was able to go for a short walk this morning. Objective Vital Signs Vital signs Vital Signs Date Time Temp Pulse Resp B/P Pulse Ox O2 Delivery O2 Flow Rate FiO2 10/21/16 08:03 98.2 68 16 109/60 99 Room Air Telemetry Rhythm: Sinus Rhythm Height (Feet): 5 Height (Inches): 9.00 Weight (Kilograms): 89.800 General General Appearance: Alert, Orientated x 3, Overweight, Well Nourished, Well Developed, Cooperative, Moderate Distress Eyes (Brief) Eyes: FOUND: EOMI, PERRL, NOT FOUND: scleral icterus ENMT (Brief) ENMT: FOUND: hearing intact, mucosa moist Neck (Brief) Neck: FOUND: midline, NOT FOUND: nuchal rigidity, spasm Respiratory (Brief) Respiratory: FOUND: clear all lewis, equal bilaterally, NOT FOUND: rales, wheezes Cardiovascular (Brief) Cardiac: FOUND: regular rate, regular rhythm, NOT FOUND: pedal edema Abdomen (Brief) Abdominal: FOUND: BS normo active x4, soft, NOT FOUND: distended, tender Extremities (Brief) Extremity : Side: Bilateral Extremity: leg Extremity Finding: NOT FOUND: edema Musculoskeletal (Brief) Musculoskeletal: FOUND: extremities move equally, NOT FOUND: deformity, loss of motion, spasm, tenderness Integumentary (Brief) Integumentary: FOUND: dry, warm Neurologic (Brief) Neurological: FOUND: cranial 2-12 intact, motor (Intact ) Psychiatric (Brief) Psychiatric: FOUND: alert, attentive, normal affect, oriented Laboratory Laboratory Laboratory Tests 10/20/16 04:43 10/21/16 04:38 Laboratory Tests 10/20/16 04:43 10/20/16 09:04 10/20/16 13:45 10/20/16 18:11 10/20/16 23:04 10/21/16 04:38 10/21/16 11:55 Assessment & Plan Problems: (1) Hematochezia Status: Acute (2) Acute blood loss anemia Status: Acute Assessment & Plan: 10/19 Transfused 2 units pRBC 10/20 Transfused 2 unit pRBC 10/21 Transfused 1 unit pRBC (3) Aortic stenosis, mild Status: Chronic (4) Diabetes mellitus type 2 in obese Status: Chronic (5) Joint pain Status: Chronic Plan/Intensity of Service Continue clear liquids for bowel rest. Repeat H/H at noon stable - check hemogram this afternoon. Transfuse as indicated. Ambulate as able. SCD for DVT prevention. Monitor sugars - stable currently. Recheck CBC and BMP in am. Anticipate Dr Gardiner's return in am. Case discussed with pt and his . Time spent with patient care 35 minutes. DVT Prophylaxis: SCD'S Code Status Full Code Hospital Course Summary Disclaimer The hospital course summary below is not to be considered part of the above Progress Note. Hospital Course Summary 10/19 Patient admitted for acute blood loss anemia with hematochezia. We will type and cross 2 units packed red blood cells and give each. I will try to keep 2 units of packed red blood cells ahead and all times. We will recheck his lab in the morning including CBC chemistry panel and iron studies. He will need another colonoscopy. If this is negative consider Meckel's scan. As of now, I suspect diverticular bleeding. 10/20 Dr Amaral covering for Dr Edmondson Feeling much better since transfusions. Breathing much easier - not SOA with activities as prior to admission. Heart not pounding as it was before. Feels less weak and unsteady when up. Not feeling dizzy with positional changes. No ab pain or nausea. Not passing blood in stool. No f/c. Transfused 2 units pRBC - HGB increased to 6.9. Transfused 1 unit pRBC - HGB increased to 7.8 Continue clear liquids for bowel rest. Recheck H/H this afternoon. Encourage ambulation. SCD and ambulation for DVT prevention. Blood sugars stable. Blood pressure stable. Recheck CBC and BMP in am. 10/21 Dr Amaral covering for Dr Gardiner Passed bloody stools yesterday. HGB decreased. Transfused yesterday evening and again this morning shortly after midnight. Did need IVF bolus overnight as BP decreased. Denies ab pain or discomfort. Notes bloating and rumbling in abdomen. No nausea. Breathing well without SOA or congestion. No chest pressure or pain. Not dizzy when up-was able to go for a short walk this morning. Continue clear liquids for bowel rest. Repeat H/H at noon stable - check hemogram this afternoon. Transfuse as indicated. Ambulate as able. SCD for DVT prevention. Monitor sugars - stable currently. Recheck CBC and BMP in am. Anticipate Dr Gardiner's return in am. PILI AMARAL MD Oct 21, 2016 12:11
[2016-10-21 15:43] VITALS: BP 115/61; PULSE 72; RESP 14; O2SAT 98
[2016-10-21 17:58] LABS: HCT - HEMATOCRIT 22.5 % (41-53); MEAN CORPUSCULAR HGB 25.4 UUG (26-34); MEAN CORPUSCULAR HGB CONC(MCHC 31.1 GM/DL (31-37); MEAN CORPUSCULAR VOLUME 81.5 UM3 (80-100); RED BLOOD COUNT 2.76 M/MM3 (4.50-5.90); WBC - WHITE BLOOD COUNT 7.4 T/MM3 (4.5-11.0)
--- NOTE | 2016-10-21 18:30 | NUR ---
status Pt A/O x3, V/S stable on RA, no drop in BP as Hgb dropping. Pt having liquid, bloody stools, urine output good for shift. Pt denies pain and no PRN meds given. Pt worried about drop and would like to have colonoscopy as soon as possible, have notified dr Amaral of pt concerns. Pt denies any N/V. Pt ambulating well around unit.
[2016-10-21] MEDS ORDERED: NORMAL SALINE 500 ML IV SCH (18:44)
[2016-10-21] MEDS ORDERED: DiphenhydrAMINE 25 MG CAPSULE PO ONE (18:45)
[2016-10-21] MEDS: PANTOPRAZOLE 80 MG in NORMAL SALINE 250 ML IV SCH (19:26)
[2016-10-21 19:34] VITALS: BP 128/67; PULSE 82; RESP 16; TEMP 99.4; O2SAT 98
[2016-10-21] MEDS ORDERED: PANTOPRAZOLE 40mg INJECTION IV SCH (21:00)
[2016-10-21 23:41] VITALS: BP 120/57; PULSE 82; RESP 18; TEMP 98.8; O2SAT 98
--- NOTE | 2016-10-21 23:45 | NUR ---
Blood transfusion complete Blood transfusion completed at 2140. Patient showed no s/s of transfusion reaction. Vital signs stable. Patient currently resting in bed. IV returned to protonix infusion as ordered. Addendum: 10/22/16 at 0522 by JARRETT EARL RN Blood transfusion completed at 2340, not 2140.
[2016-10-22] VITALS (38 sets, daily range): BP systolic 93–157; BP diastolic 51–67; PULSE 70–89; RESP 12–22; TEMP 96.8–98.7; O2SAT 95–100
[2016-10-22 00:43] LABS: HCT - HEMATOCRIT 25.5 % (41-53); HGB - HEMOGLOBIN 8.1 GM/DL (13.5-17.5); MEAN CORPUSCULAR HGB CONC(MCHC 31.8 GM/DL (31-37); MEAN CORPUSCULAR VOLUME 81.7 UM3 (80-100); MEAN PLATELET VOLUME 9.6 UM3 (9.4-12.4); RED BLOOD COUNT 3.12 M/MM3 (4.50-5.90); WBC - WHITE BLOOD COUNT 6.6 T/MM3 (4.5-11.0)
[2016-10-22 01:46] LABS: IRON < 10 UG/DL (49-181)
[2016-10-22 01:55] LABS: TOTAL IRON BINDING CAPACITY 342 UG/DL (261-497)
[2016-10-22 02:24] LABS: FERRITIN 4.34 NG/ML (18-464)
[2016-10-22] MEDS: PANTOPRAZOLE 80 MG in NORMAL SALINE 250 ML IV SCH ×2 (05:00→15:00)
--- NOTE | 2016-10-22 05:22 | NUR ---
Shift Summary Patient alert and oriented x3. VSS. On RA. Denies pain, n/v/d. IV infusing as ordered through left hand IV. Patient received one unit of blood, states he "feels better" after transfusion and is glad to hear that hemoglobin has increased to 8.1. Up ad erinn in room. Patient has not had BM overnight. Currently resting in bed. Will continue to monitor.
[2016-10-22 05:43] LABS: BASOPHILS % (AUTO) 0.4 % (0-2); EOSINOPHILS # (AUTO) 0.1 T/MM3 (0-0.5); EOSINOPHILS % (AUTO) 1.4 % (0-4); HCT - HEMATOCRIT 23.7 % (41-53); HGB - HEMOGLOBIN 7.3 GM/DL (13.5-17.5); IMMATURE GRANULOCYTE # (AUTO) 0.01 T/MM3 (0.00-0.03); IMMATURE GRANULOCYTE % (AUTO) 0.2 % (0.0-0.5); LYMPHOCYTES # (AUTO) 3.3 T/MM3 (1-4.8); LYMPHOCYTES % (AUTO) 58.3 % (23-45); MEAN CORPUSCULAR HGB 25.3 UUG (26-34); MEAN CORPUSCULAR HGB CONC(MCHC 30.8 GM/DL (31-37); MEAN CORPUSCULAR VOLUME 82.3 UM3 (80-100); MEAN PLATELET VOLUME 9.7 UM3 (9.4-12.4); MONOCYTES # (AUTO) 0.5 T/MM3 (0-0.8); MONOCYTES % (AUTO) 9.5 % (0-9.0); NEUTROPHILS #(AUTO)-ABSOLUTE 1.7 T/MM3 (1.8-7.7); NEUTROPHILS % (AUTO) 30.2 % (33-66); RED BLOOD COUNT 2.88 M/MM3 (4.50-5.90); WBC - WHITE BLOOD COUNT 5.7 T/MM3 (4.5-11.0)
[2016-10-22 05:59] LABS: ANION GAP 5 MEQ/L (5-15); BUN/CREATININE RATIO 16 RATIO (6-26); CALCIUM 8.1 MG/DL (8.4-10.2); CHLORIDE 108 MEQ/L (98-107); CO2 - CARBON DIOXIDE 25 MEQ/L (22-30); CREATININE 0.8 MG/DL (0.8-1.5); GLOMERULAR FILTRATION RATE 96; GLUCOSE 102 MG/DL (75-110); POTASSIUM 3.9 MEQ/L (3.6-5); SODIUM 138 MEQ/L (134-144)
[2016-10-22] MEDS ORDERED: NORMAL SALINE 500 ML IV SCH ×2 (06:09→08:13)
[2016-10-22] MEDS: METFORMIN 500 MG TABLET PO SCH ×2 (08:00→17:30)
[2016-10-22 08:43] LABS: INR 1.15 (0.76-1.04); PROTHROMBIN TIME 12.5 SEC (9.31-12.49); PTT 28.5 SEC (24-36)
[2016-10-22 10:12] LABS: HGB - HEMOGLOBIN 7.4 GM/DL (13.5-17.5)
--- NOTE | 2016-10-22 11:37 | NUR ---
CM CM VISITED PT AND SPOUSE. CM EXPLAINED ROLE AND PROVIDED CONTACT INFORMATION. PT PLANS TO RETURN HOME POST HOSPITAL STAY. PT DENIES NEEDS. PT IS AWARE TO CONTACT CM IF NEEDS ARISE.
[2016-10-22] MEDS ORDERED: FENTANYL 100mcg/2ml INJECTION ONE (11:41)
[2016-10-22] MEDS ORDERED: LIDOCAINE VISCOUS 2% Oral Soln 15ml UD ONE (11:41)
[2016-10-22] MEDS ORDERED: BENZOCAINE 20% Top. Anesth. SPRAY UD ONE (11:41)
[2016-10-22] MEDS ORDERED: MIDAZOLAM 5mg/5ml INJECTION ONE ×2 (11:41→13:21)
[2016-10-22] MEDS ORDERED: SALINE FLUSH 10ml SYRINGE ONE ×2 (11:41→14:43)
[2016-10-22] MEDS ORDERED: LR 1,000 ML IV PRN (12:15)
[2016-10-22] MEDS ORDERED: MIDAZOLAM 5mg/5ml INJECTION IV PRN (12:54)
[2016-10-22] MEDS ORDERED: FENTANYL 100mcg/2ml INJECTION IV PRN (12:54)
[2016-10-22] MEDS ORDERED: GLUCAGON 1 MG INJECTION ONE ×2 (13:13→13:27)
[2016-10-22] MEDS ORDERED: .STERILE WATER FOR INJECTION 10 ML ONE (13:13)
[2016-10-22] MEDS ORDERED: SIMETHICONE 67 MG/ML ORAL DROPS ONE (13:26)
[2016-10-22] MEDS ORDERED: GLUCAGON 1 MG INJECTION IV PRN (13:30)
--- NOTE | 2016-10-22 13:56 | NUR ---
PROCEDURE Patient was sent to OR for an EGD, and colonoscopy at 1200. Report given to PACU nurse. Second IV site placed in right hand and consent sign.
[2016-10-22] MEDS ORDERED: POLYETHYLENE GLYCOL PO ONE (14:30)
--- NOTE | 2016-10-22 14:48 | NUR ---
POST OP RETURN PATIENT RETURN AT 1440 TO MEDICAL UNIT ROOM 162 FROM PACU. FIRST POST OF VITALS ASSESSED AND CHARTED, WILL CONTINUE TO DO POST OP VITALS EVERY 15 MIN.
[2016-10-22] MEDS ORDERED: PANTOPRAZOLE 40mg INJECTION IV ONE (15:00)
--- NOTE | 2016-10-22 16:14 | NUR ---
NUCLEAR MED PT LEFT WITH NUC MED FOR TAGGED RBC SCAN AT 1555.
--- NOTE | 2016-10-22 17:29 | DI ---
Indication: ITS.REASON: GI BLEED bloody stools PROCEDURE: NM GI BLEED, TAGGED RBC: Encounter: Initial Comparison: None Technique: The patient's red blood cells were labeled with 24.2 mCi of Tc-99m using the in-vitro technique. Anterior planar images of the abdomen were obtained for one hour. Findings: Normal radiotracer uptake is seen within the blood pool. There is no definitive evidence of tracer extravasation outside the vascular system. No localizable bleed seen within small or large bowel. Impression: No active bleeding site identified. .
--- NOTE | 2016-10-22 18:58 | NUR ---
SHIFT PT HAS BEEN PLEASANT AND COOPERATIVE ALL SHIFT. PT IS A&OX3 UP WITH ONE ASSIST, STAND BY. PT HAS HAD A FEW BRIGHT RED COPIOUS STOOLS THIS SHIFT AND WILL HAVE A BOWEL PREP TONIGHT FOR A COLONOSCOPY TOMORROW AM. PT WENT TO [facility] FOR A RBC TAGGED SCAN AND HAD A PICC LINE PLACED THIS AFTERNOON. ONCE MORE UNIT OF PRBC TO BE INFUSED TONIGHT. FAMILY HAS BEEN AT BEDSIDE. PT DENIES PAIN, N/V AND SOA. PT IS ON ROOM AIR. PT HAS BEEN NPO ALL SHIFT. ALLOWED ONE MEAL OF CLEAR LIQUIDS WITH NO RED OR PURPLE DYE THEN NPO ONCE AGAIN. NO OTHER CHANGES SINCE PREVIOUS SHIFT. ALARMS IN USE AND CALL LIGHT WITH IN REACH.
--- NOTE | 2016-10-22 22:45 | NUR ---
Blood Transfusion complete. 1 unit given this evening. No S/S of transfusion reactions. Vital signs stable throughout and afterward. Will continue to monitor.
[2016-10-23] VITALS (41 sets, daily range): BP systolic 83–131; BP diastolic 45–72; PULSE 62–84; RESP 10–20; TEMP 96.4–99; O2SAT 94–100
--- NOTE | 2016-10-23 02:45 | NUR ---
Bowel Prep Stools post-bowel prep are semi-transparent brown with dark brown specks. Pt has had no gilbert blood in stools during this shift so far.
--- NOTE | 2016-10-23 05:08 | NUR ---
Status Double lumen PICC flushes and aspirates well. Pt tired but still in excellent spirits. Pt able to rest for several hours after bowel prep moved through bowel. Pt denies pain, nausea, vomiting. Pt denied weakness, lightheadedness, or dizziness with ambulating to BR. Pt states, "I feel better today than I did any of the last three days." Pt was steady on feet and did not become SOA with ambulation. Bed alarm on and call light within reach. Will continue to monitor.
[2016-10-23 05:44] LABS: BASOPHILS % (AUTO) 0.4 % (0-2); EOSINOPHILS # (AUTO) 0.1 T/MM3 (0-0.5); EOSINOPHILS % (AUTO) 1.1 % (0-4); HGB - HEMOGLOBIN 7.6 GM/DL (13.5-17.5); IMMATURE GRANULOCYTE # (AUTO) 0.02 T/MM3 (0.00-0.03); IMMATURE GRANULOCYTE % (AUTO) 0.3 % (0.0-0.5); LYMPHOCYTES # (AUTO) 2.8 T/MM3 (1-4.8); LYMPHOCYTES % (AUTO) 37.1 % (23-45); MEAN CORPUSCULAR HGB 25.7 UUG (26-34); MEAN CORPUSCULAR HGB CONC(MCHC 31.7 GM/DL (31-37); MEAN CORPUSCULAR VOLUME 81.1 UM3 (80-100); MEAN PLATELET VOLUME 9.8 UM3 (9.4-12.4); MONOCYTES # (AUTO) 0.8 T/MM3 (0-0.8); NEUTROPHILS #(AUTO)-ABSOLUTE 3.8 T/MM3 (1.8-7.7); NEUTROPHILS % (AUTO) 50.1 % (33-66); RED BLOOD COUNT 2.96 M/MM3 (4.50-5.90); WBC - WHITE BLOOD COUNT 7.6 T/MM3 (4.5-11.0)
[2016-10-23 05:49] LABS: ALBUMIN 2.4 G/DL (3.5-5.0); ALBUMIN/GLOBULIN RATIO 1.2 RATIO (1.1-2.2); ALKALINE PHOSPHATASE 35 U/L (38-126); ALT (SGPT) 30 U/L (21-72); ANION GAP 4 MEQ/L (5-15); AST (SGOT) 18 U/L (17-59); BUN/CREATININE RATIO 16 RATIO (6-26); CALCIUM 7.8 MG/DL (8.4-10.2); CHLORIDE 107 MEQ/L (98-107); CO2 - CARBON DIOXIDE 27 MEQ/L (22-30); CREATININE 0.9 MG/DL (0.8-1.5); GLOMERULAR FILTRATION RATE 84; GLUCOSE 100 MG/DL (75-110); POTASSIUM 3.5 MEQ/L (3.6-5); SODIUM 138 MEQ/L (134-144); TOTAL PROTEIN 4.4 G/DL (6.3-8.2)
--- NOTE | 2016-10-23 06:57 | OPNOTEF ---
DATE OF PROCEDURE: 10/22/2016 PHYSICIAN: Napoleon Gardiner DO PROCEDURE: Esophagogastroduodenoscopy and colonoscopy. INDICATION FOR PROCEDURE Acute rectal bleeding with significant drop in his hemoglobin from 13 to 6. ASA CLASSIFICATION: 3 DESCRIPTION OF PROCEDURE Consent was signed and on the chart. Routine monitoring with ECG, continuous oximetry and noninvasive blood pressure was performed throughout the procedure and found to be within normal limits. IV sedation was performed with 8 mg of Versed and 80 mcg of fentanyl. Prior to the procedure, the patient was brought to the endoscopy lab where a brief review of his medical history and physical exam was performed. The procedure was explained to him and he was agreeable to continue. All questions were answered. He was given IV sedation. After being sprayed with a topical anesthetic to the posterior pharynx the endoscope was advanced into the posterior pharynx without difficulty. Visualization of his vocal cords was normal. The endoscope was advanced into the esophagus, down through the stomach through the pylorus to the second part of the duodenum. Duodenal mucosa appeared normal, as did the stomach. The endoscope was retroflexed. There was no appreciable hiatal hernia. Stomach was decompressed and the endoscope brought back to the GE junction, noting a normal GE junction. The remainder of his esophagus was free of pathology. Colonoscopy was then performed. Digital rectal exam revealed a normal size and contour prostate. The endoscope was inserted through the anal verge and immediately noted evidence of old blood and this continued throughout the exam all the way to the cecum. I attempted to intubate the ileocecal valve and was unable to do so. He did appear to have more bleeding from the distal ascending colon throughout the exam, but he did have blood at the cecum as well, so the question is whether he is bleeding in the colon or small bowel. He tolerated the procedure. No complications with the exception of blood throughout the exam. Multiple washings had to be performed. IMPRESSION 1. Blood throughout the exam, nothing actively bleeding. 2. Diverticulosis, extensive. RECOMMENDATIONS Tagged RBC scan. Keep his hemoglobin above 9. I will re-prep his bowel and, if indicated, repeat this procedure. [facility]
[2016-10-23] MEDS ORDERED: MIDAZOLAM 5mg/5ml INJECTION ONE ×2 (07:04→07:57)
[2016-10-23] MEDS ORDERED: SALINE FLUSH 10ml SYRINGE ONE (07:04)
[2016-10-23] MEDS ORDERED: FENTANYL 100mcg/2ml INJECTION ONE (07:04)
[2016-10-23] MEDS ORDERED: FENTANYL 100mcg/2ml INJECTION IV PRN (07:52)
[2016-10-23] MEDS ORDERED: MIDAZOLAM 5mg/5ml INJECTION IV PRN (07:52)
--- NOTE | 2016-10-23 10:15 | OPNOTEF ---
DATE OF PROCEDURE: 10/23/2016 PHYSICIAN: Napoleon Gardiner DO PROCEDURE: Colonoscopy. INDICATION FOR PROCEDURE Aggressive rectal bleeding with hemoglobin of 7 after transfusing a total of 9 units of blood.. ASA CLASSIFICATION: 3 DESCRIPTION OF PROCEDURE Consent was signed and on the chart. Routine monitoring with ECG, continuous oximetry and noninvasive blood pressure was performed throughout the procedure and found to be within normal limits. IV sedation was performed with a total of 7 mg of Versed and 70 mcg of fentanyl. Prior to the procedure, the patient was brought to the endoscopy lab where a brief review of his medical history and physical exam was performed. The procedure was described to him. He was agreeable to continue. All questions were answered. He was given IV sedation and placed in left lateral decubitus position. The endoscope was advanced through the anal verge to the cecum. Upon reaching the cecum, again I attempted to intubate the ileocecal valve and just was unable to. On the right side of the colon there was no evidence of blood. However, he did have diverticulosis of the ascending colon. Transverse colon was free of diverticula and other pathology. In descending and sigmoid colon he did have extensive diverticulosis and he did have areas of recent hemorrhage within at least a couple of the diverticula. IMPRESSION Diverticulosis with evidence of recent hemorrhage consistent with diverticular bleeding. RECOMMENDATIONS He has one unit left to transfuse. After that, I will give him ? which is IV iron and then advance his diet. At that point I will have him on a diverticulosis diet with careful monitoring. Should he bleed this aggressively again, we should consider a hemicolectomy. AWASI
[2016-10-23] MEDS: METFORMIN 500 MG TABLET PO SCH ×2 (11:04→18:26)
[2016-10-23] MEDS: PANTOPRAZOLE 40mg INJECTION IV SCH (11:06)
--- NOTE | 2016-10-23 13:28 | NUR ---
BBK Pt is to receive 1 unit of PRBC. baseline vitals were taken and entered. blood is transfusing at a rate of 60mls/hr. will continue to monitor pt.
--- NOTE | 2016-10-23 13:43 | NUR ---
BBK pt is receiving 1 unit of PRBC. first fifteen minutes have passed. vitals taken and entered. rate changed to 140mls/hr. pt is tolerating well. will continue to monitor pt.
--- NOTE | 2016-10-23 15:51 | NUR ---
IV IRON CONSULT: 66 y.o. Male admitted 10/19/16 with anemia. 10/23/16 Colonoscopy revealed diverticulitis with recent hemorrhage. Iron per pharmacy consult ordered to begin after remaining 1 unit of blood is transfused. Patient has received total of 10 units of blood since admission date 10/19/16. Dx: Acute anemia 2* to blood loss: Today's hct = 24% Total calculated dose = 700 mg Will give 25 mg IV test dose. Watch VS q15min x 1 hr. (Watching for anaphylaxis, respiratory distress, hives) If no reaction, will give remainder of dose = 675 mg as a total dose over [address] Gardiner's request. Watch VS q1 hr during infusion. Thank you for the consult, Idania Cueto [facility]
[2016-10-23] MEDS ORDERED: IRON DEXTRAN 100mg/2ml INJECTION IV ONE (16:00)
[2016-10-23] MEDS ORDERED: NORMAL SALINE IV ONE (17:00)
[2016-10-23] MEDS ORDERED: IRON DEXTRAN IV ONE (17:00)
--- NOTE | 2016-10-23 19:00 | NUR ---
STATUS pt is alert and oriented X3. pt has denied pain. pt gets up ad erinn. pt is on room air. pt has visited with company this shift. is present. pt is resting in bed. call light within reach.
--- NOTE | 2016-10-23 23:50 | NUR ---
Iron Administration Iron administration is completed. No signs of respiratory distress, anaphylaxis, or hives during administration. VS stable throughout.
[2016-10-24 04:00] VITALS: BP 122/67; PULSE 71; RESP 16; TEMP 97.3; O2SAT 96
--- NOTE | 2016-10-24 05:33 | NUR ---
Status VS's stable during night. Pt able to sleep. Denied dizziness, lightheadedness, or weakness with ambulation. Ambulated to end of simon and back with no signs of respiratory distress. Pt states, "I feel like I could go back to work!" No PRN medications given. GULSHAN PICC flushes and aspirates. Will continue to monitor. Addendum: 10/24/16 at 0746 by SUSAN BORJA RN Pt had no gilbert rectal bleeding through the night and no BM. Adequate UO.
[2016-10-24 05:35] LABS: BASOPHILS % (AUTO) 0.3 % (0-2); EOSINOPHILS # (AUTO) 0.2 T/MM3 (0-0.5); EOSINOPHILS % (AUTO) 2.5 % (0-4); HCT - HEMATOCRIT 25.2 % (41-53); HGB - HEMOGLOBIN 7.9 GM/DL (13.5-17.5); IMMATURE GRANULOCYTE # (AUTO) 0.02 T/MM3 (0.00-0.03); IMMATURE GRANULOCYTE % (AUTO) 0.3 % (0.0-0.5); LYMPHOCYTES % (AUTO) 50.2 % (23-45); MEAN CORPUSCULAR HGB 26.2 UUG (26-34); MEAN CORPUSCULAR HGB CONC(MCHC 31.3 GM/DL (31-37); MEAN CORPUSCULAR VOLUME 83.7 UM3 (80-100); MEAN PLATELET VOLUME 9.8 UM3 (9.4-12.4); MONOCYTES # (AUTO) 0.6 T/MM3 (0-0.8); MONOCYTES % (AUTO) 9.2 % (0-9.0); NEUTROPHILS #(AUTO)-ABSOLUTE 2.3 T/MM3 (1.8-7.7); NEUTROPHILS % (AUTO) 37.5 % (33-66); RED BLOOD COUNT 3.01 M/MM3 (4.50-5.90); WBC - WHITE BLOOD COUNT 6.1 T/MM3 (4.5-11.0)
[2016-10-24 05:52] LABS: ALBUMIN 2.4 G/DL (3.5-5.0); ALBUMIN/GLOBULIN RATIO 1.1 RATIO (1.1-2.2); ALKALINE PHOSPHATASE 39 U/L (38-126); ALT (SGPT) 17 U/L (21-72); ANION GAP 4 MEQ/L (5-15); AST (SGOT) 19 U/L (17-59); BUN/CREATININE RATIO 11 RATIO (6-26); CALCIUM 7.9 MG/DL (8.4-10.2); CHLORIDE 109 MEQ/L (98-107); CO2 - CARBON DIOXIDE 26 MEQ/L (22-30); CREATININE 0.8 MG/DL (0.8-1.5); GLOMERULAR FILTRATION RATE 96; GLUCOSE 93 MG/DL (75-110); POTASSIUM 3.6 MEQ/L (3.6-5); SODIUM 139 MEQ/L (134-144); TOTAL PROTEIN 4.5 G/DL (6.3-8.2)
[2016-10-24 07:43] VITALS: BP 124/77; PULSE 77; RESP 16; TEMP 96.3; O2SAT 97
[2016-10-24 08:00] VITALS: PULSE 60; RESP 16
[2016-10-24] MEDS: METFORMIN 500 MG TABLET PO SCH (08:50)
[2016-10-24] MEDS: PANTOPRAZOLE 40mg INJECTION IV SCH (09:02)
[2016-10-24] MEDS ORDERED: MAGN400T6 PO (10:36)
--- NOTE | 2016-10-24 10:43 | NUR ---
CM DR WILLARD VISITED PT. PT WILL D/C HOME TODAY. PT DENIES NEEDS. AT BEDSIDE AND STATES THAT SHE WILL BE PT NURSE. PT IS AWARE TO CONTACT CM IF NEEDS ARISE.
--- NOTE | 2016-10-24 10:43 | DSPDOC ---
Discharge Diagnoses Discharge Diagnoses (1) Acute blood loss anemia Comments: 10/19 Transfused 2 units pRBC 10/20 Transfused 2 unit pRBC 10/21 Transfused 1 unit pRBC (2) Diverticular hemorrhage (3) Hematochezia (4) Aortic stenosis, mild (5) Diabetes mellitus type 2 in obese (6) Joint pain Hospital Course 10/19 Patient admitted for acute blood loss anemia with hematochezia. We will type and cross 2 units packed red blood cells and give each. I will try to keep 2 units of packed red blood cells ahead and all times. We will recheck his lab in the morning including CBC chemistry panel and iron studies. He will need another colonoscopy. If this is negative consider Meckel's scan. As of now, I suspect diverticular bleeding. 10/20 Dr Amaral covering for Dr Edmondson Feeling much better since transfusions. Breathing much easier - not SOA with activities as prior to admission. Heart not pounding as it was before. Feels less weak and unsteady when up. Not feeling dizzy with positional changes. No ab pain or nausea. Not passing blood in stool. No f/c. Transfused 2 units pRBC - HGB increased to 6.9. Transfused 1 unit pRBC - HGB increased to 7.8 Continue clear liquids for bowel rest. Recheck H/H this afternoon. Encourage ambulation. SCD and ambulation for DVT prevention. Blood sugars stable. Blood pressure stable. Recheck CBC and BMP in am. 10/21 Dr Amaral covering for Dr Willard Passed bloody stools yesterday. HGB decreased. Transfused yesterday evening and again this morning shortly after midnight. Did need IVF bolus overnight as BP decreased. Denies ab pain or discomfort. Notes bloating and rumbling in abdomen. No nausea. Breathing well without SOA or congestion. No chest pressure or pain. Not dizzy when up-was able to go for a short walk this morning. Continue clear liquids for bowel rest. Repeat H/H at noon stable - check hemogram this afternoon. Transfuse as indicated. Ambulate as able. SCD for DVT prevention. Monitor sugars - stable currently. Recheck CBC and BMP in am. Anticipate Dr Willard's return in am. Patient was taken for EGD and colonoscopy on Saturday which demonstrated normal findings on the EGD no evidence of bleeding. The colonoscopy demonstrated blood throughout the colon most noted on the left side, diverticulosis in the ascending descending and sigmoid colon. A tagged RBC scan did not demonstrate an area of bleeding and this coincided with the patient saying that his bleeding seemed to have stopped. He was then given a bowel prep and taken back for repeat colonoscopy on Saturday which demonstrated an area in the sigmoid colon of previous diverticular bleeding with clot. I then transfused his last unit of blood that was still available for total of 10 units of packed red blood cells there were transfused during this hospitalization. I also gave him NSAID with a hemoglobin goal of 14. This morning his hemoglobin is at 7.9, yesterday it was 8.0. He states he has not passed any more blood per rectum. His vital signs are stable. He seems to be well enough to go home with caution restrictions due to his anemia. I told him to take magnesium oxide twice daily and walk for 30 minutes daily. He needs to gradually increase his fiber in his diet. He is further instructed that if he has any more evidence of rectal bleeding he is to return to the ER immediately and he understands. At that time I would CK surgical consultation with Dr. Resendiz for left hemicolectomy. Home Meds Active Scripts Magnesium Oxide (Magnesium Oxide) 400 Mg Tablet, 1 TAB PO BID for 30 Days, #60 TAB 5 Refills Prov:PINEDA WILLARD DO 10/24/16 Cyclobenzaprine HCl (Cyclobenzaprine HCl) 10 Mg Tablet, 10 MG PO TID Y for MUSCLE SPASM, #40 TAB 0 Refills Prov:EMMA PEREZ MD 01/18/16 Reported Medications ASA/Acetaminophn/Mag/Alh/Caff (Vanquish Caplet) 1 Each Tablet, 1 TAB PO PRN for HEADACHE 01/18/16 Meloxicam (Meloxicam) 15 Mg Tablet, 15 MG PO DAILY 04/19/15 Oxymetazoline HCl (Afrin) 30 Ml [place], 2 SPRAY NS PRN Y for NASAL CONGESTION 09/10/14 Multivits-Min/FA/Lycopene/Lut (Centrum Silver Tablet) 1 Each Tablet, 1 TAB PO DAILY 09/09/14 Metformin HCl (Metformin HCl) 500 Mg Tablet, 500 MG PO BID 08/11/14 Aspirin (Aspir 81) 81 Mg Tablet.dr 81 MG PO DAILY 08/11/14 Discontinued Scripts Dextromethorphan Polistirex (Delsym) 30 Mg/5 Ml Carmen.er.12h, 5 ML PO C30YHAS for COUGH/CONGESTION for 10 Days, #100 ML [address] Neal Vences [employer] [facility] [address] [phone] Prov:MARISEL GALVIN [employer] 08/24/16 Minocycline HCl (Minocycline HCl) 100 Mg Capsule, 100 MG PO BID for 10 Days, # 20 CAP [address] Neal Vences [employer] [facility] [address] [phone] Prov:MARISEL GALVIN [employer] 08/24/16 Benzonatate (Tessalon Perle) 100 Mg Capsule, 100 MG PO Q8H for COUGH for 10 Days , #30 CAP [address] Neal Vences [employer] [facility] [address] [phone] Prov:MARISEL GALVIN [employer] 07/03/16 Promethazine HCl/Codeine (Prometh-Codein 6.25-10 mg/5 ml) 5 Ml Syrup, 5 ML PO QHSPRN for COUGH/CONGESTION for 10 Days, #60 ML [address] Neal Vences [employer] [facility] [address] [phone] Prov:MARISEL GALVIN 07/03/16 Azithromycin (Azithromycin) 250 Mg Tablet, 1 TAB PO DAILY, #6 TAB 0 Refills TAKE TWO TABLETS ON DAY ONE, THEN ONE TABLET DAILY UNTIL ALL TAKEN. Supervising physician Dr. Neal Vences [employer] [facility] [address] [phone] Prov:MARISEL GALVIN 07/03/16 Discharge Disposition Discharge to home with outpatient follow-up and lab on Saturday Copies To 1: PINEDA WILLARD DO Follow up Condition at time of discharge: Good Follow up As instructed PINEDA WILLARD DO Oct 24, 2016 10:42
[2016-10-24 12:00] VITALS: BP 116/67; PULSE 67; RESP 17; TEMP 98.2; O2SAT 96
[2016-10-24] MEDS ORDERED: NEOMYCIN/POLYM/BACITR OINT PACKET TOP ONE (12:30)
--- NOTE | 2016-10-24 13:15 | NUR ---
DISMISSAL pt has been dismissed to home. all dismissal paperwork has been reviewed with the pt and a copy was sent home. IV was dc'd. PICC line was DC'd by infusion therapy. all personal belongings were sent with the pt. pt left with his .
== END 2016-10-24 13:52 | disposition home or self-care (01) | DRG 378 ==
LOC: MED 17:21
PROVIDERS: ADMIT Internal Medicine; ATTEND Internal Medicine
PROC: 30233N1 Transfusion of Nonautologous Red Blood Cells into Peripheral Vein, Percutaneous Approach (ICD-10-PCS; 2016-10-19)
PROC: 30233N1 Transfusion of Nonautologous Red Blood Cells into Peripheral Vein, Percutaneous Approach (ICD-10-PCS; 2016-10-19)
PROC: 30233N1 Transfusion of Nonautologous Red Blood Cells into Peripheral Vein, Percutaneous Approach (ICD-10-PCS; 2016-10-20)
PROC: 30233N1 Transfusion of Nonautologous Red Blood Cells into Peripheral Vein, Percutaneous Approach (ICD-10-PCS; 2016-10-21)
PROC: 02HV33Z Insertion of Infusion Device into Superior Vena Cava, Percutaneous Approach (ICD-10-PCS; 2016-10-22)
PROC: 0DJ08ZZ Inspection of Upper Intestinal Tract, Via Natural or Artificial Opening Endoscopic (ICD-10-PCS; principal; 2016-10-22 12:57)
PROC: 0DJD8ZZ Inspection of Lower Intestinal Tract, Via Natural or Artificial Opening Endoscopic (ICD-10-PCS; 2016-10-22 12:57)
DX: K57.51 Diverticulosis of both small and large intestine without perforation or abscess with bleeding (principal); D62 Acute posthemorrhagic anemia; K92.1 Melena; E11.9 Type 2 diabetes mellitus without complications; M25.50 Pain in unspecified joint; E66.9 Obesity, unspecified; I35.0 Nonrheumatic aortic (valve) stenosis; Z87.891 Personal history of nicotine dependence; Z79.84 Long term (current) use of oral hypoglycemic drugs; Z68.29 Body mass index [BMI] 29.0-29.9, adult
CPT/HCPCS: 36415; 36416; 80048; 80053; 82248; 82728; 82948; 83540; 83550; 85014; 85018; 85025; 85027; 85610; 85730; 86850; 86900; 86901; 86920; 86922; 87507; J1610

== ENCOUNTER → 2016-10-19 | Outpatient (CLI) | payer MEDICARE, OTHER ==
[~2016-10-19] MED LIST: ASA/1TAB6 PO; ASPI-557 PO; AZIT250T6 PO; BENZ100C97 PO; CYCL-375 PO; DEXT30SU4 PO; MAGN400T6 PO; MELO-267 PO; METF500T4 PO; MINO100C2 PO; MULT-1243 PO; OXYM30SP NS; PROM5SYR PO
[2016-10-19 11:30] LABS: BASOPHILS % (AUTO) 0.4 % (0-2); EOSINOPHILS % (AUTO) 0.9 % (0-4); HCT - HEMATOCRIT 20.9 % (41-53); HGB - HEMOGLOBIN 6.1 GM/DL (13.5-17.5); LYMPHOCYTES # (AUTO) 1.6 T/MM3 (1-4.8); MEAN CORPUSCULAR HGB 22.7 UUG (26-34); MEAN CORPUSCULAR HGB CONC(MCHC 29.2 GM/DL (31-37); MEAN CORPUSCULAR VOLUME 77.7 UM3 (80-100); MEAN PLATELET VOLUME 8.2 UM3 (9.4-12.4); MONOCYTES # (AUTO) 0.3 T/MM3 (0-0.8); MONOCYTES % (AUTO) 6.9 % (0-9.0); NEUTROPHILS #(AUTO)-ABSOLUTE 2.6 T/MM3 (1.8-7.7); NEUTROPHILS % (AUTO) 56.8 % (33-66); RED BLOOD COUNT 2.69 M/MM3 (4.50-5.90); WBC - WHITE BLOOD COUNT 4.5 T/MM3 (4.5-11.0)
== END ==
LOC: LAB 11:04
PROVIDERS: ATTEND Internal Medicine
DX: K62.5 Hemorrhage of anus and rectum (principal)
CPT/HCPCS: 36415; 85025

== ENCOUNTER 2017-03-15 14:20 | Inpatient (IN) ==
[2017-03-15 15:32] VITALS: BMI 29.9
[2017-03-15] MEDS: LR 1,000 ML IV SCH (16:41)
[2017-03-15] MEDS: PANTOPRAZOLE 40 MG INJECTION IVP SCH ×2 (16:42→22:11)
--- NOTE | 2017-03-15 18:53 | General Surg History&Physical ---
- History of Present Illness Chief complaint: rectal bleeding HPI: Dr. Resendiz [facility] Patient Stated Medical History Peripheral Neuropathy Cataracts Hearing Loss Heart Murmur - Aortic stenosis Rheumatic Fever at 1 MONTH[address] OLD Asthma Diabetes Mellitus Type 2 Gastrointestinal Bleeding Hiatal Hernia Ulcer Hx Urinary Tract Infection Anemia Other Musculoskeletal Surgical History: Colonoscopy [id number] found blood in colon Dr. Gardiner. Colonoscopy 07-06-[address] Gardiner. Colonoscopy 07-05-2010 diverticulosis and hemorrhoids. Colonoscopic polypectomy adenomatous 2007 . Heart Cath EF 60% and mild aortic stenosis no stents Dr. Snider 2014. Lap king 07-31-2014 . Family History: father - CAD, DM, HTN sister - CAD - Social History Smoking status: Former smoker Medications Home Medications Medication Instructions Recorded Confirmed Type Metformin HCl 500 mg PO BID #0 08/11/14 03/15/17 History Multivit-Min/FA/Lycopen/Lutein 1 tab PO DAILY #0 09/09/14 03/15/17 History [Centrum Silver Tablet] Oxymetazoline HCl [Afrin] 2 spray NS PRN PRN #0 09/10/14 03/15/17 History Allergies Allergy/AdvReac Type Severity Reaction Status Date / Time Penicillins Allergy Unknown Verified 10/19/16 18:10 Review of Systems 10-point ROS: negative except for HPI and the following: - Cardiovascular Cardiovascular: Present: other (mild aortic stenosis with murmur) - Gastrointestinal Gastrointestinal: Present: blood in stools, hemorrhoids - Musculoskeletal Musculoskeletal: Present: joint pain - Endocrine Endocrine: Present: diabetes - Vital Signs Last Vital Signs Temp 99.0 F 03/15/17 15:06 Pulse 88 03/15/17 15:06 Resp 16 03/15/17 15:06 BP 121/64 03/15/17 15:06 Pulse Ox 97 03/15/17 15:06 - Laboratory Result Diagrams: 03/15/17 17:14 General Surgery Results - Results Labs: 03/15/17 17:14 Sepsis Assessment - Evaluation Sepsis screening result: No Definite Risk Hospital Course Summary Disclaimer: The visit summary below is not to be considered part of the above Progress Note.
[2017-03-15] MEDS ORDERED: NS FLUSH BAG 500ml IV PRN (19:08)
[2017-03-15] MEDS ORDERED: DiphenhydrAMINE 25 MG CAPSULE PO ONE (19:08)
[2017-03-16] MEDS: PANTOPRAZOLE 40 MG INJECTION IVP SCH ×2 (09:15→20:42)
[2017-03-16] MEDS: LR 1,000 ML IV SCH ×4 (09:21→22:38)
--- NOTE | 2017-03-16 10:41 | History and Physical ---
DATE 03/15/2017 FINDINGS Mr. Huber is a 66-year-old gentleman whom I actually saw yesterday in my surgical office. Mr. Huber has a history for a diverticular bleed in September of this year requiring hospitalization. About a week ago the patient began to experience some intermittent recurrent bleeding. I encouraged the patient to be admitted yesterday. The patient understandably was somewhat reluctant to be admitted to the hospital for his rectal bleeding had begun was in the process of decreasing/subsiding. The patient did represent to my office today for a recheck hemoglobin. His hemoglobin had decreased to around 8. Therefore, I had my nurse contact the patient at home and encourage him to come to the hospital for admission. The patient states that after seeing me yesterday in the office his bleeding for the most part has subsided. He thinks that perhaps he had one additional small bloody stool. Today the patient states that he has had no bleeding. Denies any element of abdominal pain. PAST MEDICAL HISTORY, PAST SURGICAL HISTORY, MEDICATIONS, ALLERGIES, SOCIAL HISTORY, FAMILY HISTORY, REVIEW OF SYSTEMS Performed by my nurse practitioner, Jasson Elliott APRN PHYSICAL EXAMINATION GENERAL: Mr. Huber is a 66-year-old gentleman who this evening did not appear to be in acute distress. VITAL SIGNS: Temperature 99.0, pulse 80, respirations 16, blood pressure 121/64 , SAO2 97% on room air. HEENT: Normocephalic. Pupils are equally round and react to light and accommodation. CHEST: Clear to auscultation bilaterally. HEART: Regular rate and rhythm. Normal S1 and S2 without gallops, murmurs or clicks. ABDOMEN: Palpation of the abdomen reveals it to be soft and nontender. I do not appreciate any evidence for hepatosplenomegaly nor abnormal masses. EXTREMITIES: Without clubbing, cyanosis, or edema. NEURO: Cranial nerves II-XII grossly intact. Patient is without focal motor or sensory deficits. LABORATORY/RADIOGRAPHIC EVALUATION The patient had a CBC upon admission and his hemoglobin has decreased to 7.3. ASSESSMENT 66-year-old gentleman with recurrent lower GI bleed. PLAN Would recommend that we go ahead and transfuse the patient 2 units of blood, given his decreasing hemoglobin of 7.3 and his history for lower GI bleed. Will treat the patient empirically for peptic ulcer disease. We will follow the patient with serial hemoglobins. Hopefully over the next 24-48 hours his hemoglobin will stabilize and he will have no further rectal bleeding. If the patient is able to be stabilized and discharged I would recommend that on an outpatient elective basis we would proceed with colonoscopy for further evaluation. The above plan was discussed with the patient and his . They understood and agreed. AWAIS
--- NOTE | 2017-03-16 13:53 | Progress Note ---
DATE 03/16/2017 HISTORY This patient is 66 years old. He was admitted to [facility] on 03/15 with acute lower gastrointestinal tract bleeding. The patient has had recurrent episodes of acute lower gastrointestinal tract bleeding in the past. The patient states today that he most recently began to experience some bright red rectal bleeding on the evening of 03/10/2017. The patient continued to experience bright red rectal bleeding throughout the week after this. The patient apparently had an office visit with Dr. Resendiz on 03/14/2017. Dr. Resendiz recommended admission to [facility] at that time but the patient declined. The patient did have his hemoglobin rechecked at the office on 03/15/2017 and the hemoglobin was decreased. The patient did therefore agree to be admitted to [facility] on 03/15/2017. The patient states today that he had a small bowel movement with dark-red blood in it at noon on 03/15/2017. The patient was admitted to [facility]. Admission hemoglobin was 7.3. The patient states that he then had another small movement with dark-red blood in it at 1830 hours following admission to [facility]. The patient was then transfused with 2 units of packed red blood cells overnight last night. Hemoglobin is 8.5 and hematocrit is 27.3 this morning. The patient has had no further bowel movements since the bowel movement at 1830 hours yesterday evening. The patient is not having any abdominal pain. PHYSICAL EXAMINATION VITAL SIGNS: Temperature is 97.7 degrees oral. Pulse is 75. Respiratory rate is 18. Blood pressure is 124/68. Oxygen saturation is 94% on room air. ABDOMEN: The abdomen is soft and nontender. LABORATORY DATA Hemoglobin was 7.3 at 1714 hours on 03/15/2017 at the time the patient was admitted to [facility]. Hemoglobin was 8.5 and hematocrit was 27.3 this morning following transfusion of 2 units of packed red blood cells. IMPRESSION Acute lower gastrointestinal tract bleeding. PLAN 1. Continue to monitor serial hemoglobins. 2. Continue to monitor appearance of bowel movements to see if the gastrointestinal tract bleeding spontaneously resolves. 3. Continue to monitor vital signs. 4. Continue empiric treatment for peptic ulcer disease. 5. If the lower gastrointestinal tract bleeding does spontaneously resolve, the plan is for the patient to be dismissed from the hospital to return later for colonoscopy on an outpatient elective basis. [facility]
[2017-03-17 08:14] VITALS: BP 113/89; PULSE 68; RESP 16; TEMP 97.6; O2SAT 97
[2017-03-17] MEDS: PANTOPRAZOLE 40 MG INJECTION IVP SCH (08:26)
[2017-03-17] MEDS: LR 1,000 ML IV SCH (08:26)
[2017-03-17] MEDS ORDERED: ACETAMINOPHEN 325 MG TABLET PO PRN (11:16)
--- NOTE | 2017-03-17 12:37 | Discharge Instructions ---
Discharge Plan - Med Rec/Dispo Referrals/Follow Up: Ash Resendiz MD [Physician] - (Patient to call Dr Reyes office to make appointment for followup office visit.) Prescriptions: Continue Metformin HCl 500 mg PO BID #0 Multivit-Min/FA/Lycopen/Lutein [Centrum Silver Tablet] 1 tab PO DAILY #0 Oxymetazoline HCl [Afrin] 2 spray NS PRN PRN #0 PRN Reason: NASAL CONGESTION
--- NOTE | 2017-03-18 12:17 | Progress Note ---
DATE 03/17/2017 HISTORY The patient reports that his bowel movements now have a brown color. The patient is no longer having any blood in his stools. He is having no abdominal pain. The rectal bleeding appears to have spontaneously resolved. PHYSICAL EXAMINATION VITAL SIGNS: Temperature is 97.6 degrees Fahrenheit oral. Pulse is 68. Respiratory rate is 16. Blood pressure is 113/89. Oxygen saturation is 97% on room air. ABDOMEN: The abdomen is soft and nontender. LABORATORY DATA Hemoglobin was 9.2 at 1030 hours on 03/16/2017. Hemoglobin was 9.2 at 1623 hours on 03/16/2017. Hemoglobin was 9.3 at 2223 hours on 03/16/2017. Hemoglobin is 9.5 at 0429 on 03/17/2017. IMPRESSION 1. Spontaneous resolution of acute lower gastrointestinal tract bleeding. 2. Stable hemoglobin over the last 24 hours. PLAN Dismiss patient from [facility] today to follow up with Dr. Resendiz as an outpatient. AWAIS
== END 2017-03-17 13:22 | disposition home or self-care (01) | DRG 378 ==
LOC: SRG
PROVIDERS: ADMIT Surgery; ATTEND Surgery